=== PATIENT | male | born 1950 | race African-American/Black ===

== ENCOUNTER 2022-12-22 04:00 | Inpatient (IN) | payer MEDICARE ==
[2022-12-22 04:21] LABS: #Eosinphils 0.5 thou/uL (0.0-0.7); #Monocytes 0.5 thou/uL (0.11-0.59); #Neutrophils 2.3 thou/uL (1.40-6.50); %Basophils 0.8 % (0.0-1.0); %Eosinophils 10.5 % (0.0-10.0); %Lymphocytes 31.1 % (21.0-51.0); %Monocytes 9.9 % (0.0-10.0); %Neutrophils 47.5 % (42.0-75.0); Hemoglobin 14.6 g/dL (14.0-18.0); Mean Corpuscular HGB CONC 32.8 g/dL (32.0-36.0); Mean Corpuscular Hemoglobin 30.8 pg (27.0-31.0); Mean Corpuscular Volume 93.9 fl (78.0-98.0); Mean Platelet Volume 10.9 fL (7.4-10.4); Platelet Count 218 10x3/uL (130-400); RBC Distribution Width 14.1 % (11.5-14.5); Red Blood Cell (RBC) Count 4.74 mill/uL (4.70-6.10); White Blood Cell (WBC) Count 4.8 10x3/uL (4.8-10.8)
[2022-12-22 04:43] LABS: ALT (SGPT) 22 U/L (8-55); AST (SGOT) 21 U/L (5-34); Albumin 4.2 g/dL (3.4-4.8); Alkaline Phosphatase 70 U/L (40-110); Anion Gap 13 mmol/L (10-20); BUN (Urea Nitrogen) 12 mg/dL (8.4-25.7); Bilirubin, Total 0.3 mg/dL (0.2-1.2); Calc. Creatinine Clearance 0 mL/min (70-130); Calcium 8.9 mg/dL (7.8-10.44); Carbon Dioxide 24 mmol/L (23-31); Chloride 106 mmol/L (98-107); Estimated GFR 75; Globulin 2.8 g/dL (2.4-3.5); Glucose 108 mg/dL (83-110); Potassium 4.3 mmol/L (3.5-5.1); Sodium 139 mmol/L (136-145)
[2022-12-22 05:38] LABS: SARS-CoV-2 NAA Rapid Test Not Detected (NotDetected)
[2022-12-22] MEDS ORDERED: predniSONE 20 MG TAB ONE (06:11)
[2022-12-22] MEDS ORDERED: Ipratropium/Albuterol 3 ML NEB ONE ×2 (06:11→07:53)
[2022-12-22 06:14] LABS: Actual Bicarbonate (HCO3v) 27.1 mEq/L (22-28); Base Excess 1.2 mEq/L (-2.0 to +3.0); Calcium, Ionized (venous) 1.09 mmol/L (1.16-1.32); Chloride (VBG) 105 mmol/L (98-106); Hematocrit-VBG 44 % (42.0-52.0); Hemoglobin (Hb) 14.9 g/dL (12.6-17.4); Potassium (VBG) 4.19 mmol/L (3.70-5.30); Sodium 138.2 mmol/L (133-146); pH (venous) 7.372 (7.32-7.43)
[2022-12-22] MEDS ORDERED: Aspirin 81 mg Enteric Coated Tablet ONE (06:32)
[2022-12-22] MEDS ORDERED: Ondansetron ODT 4 MG TAB PO PRN (08:08)
[2022-12-22] MEDS ORDERED: Ondansetron PF 4 MG/2 ML Vial IVP PRN (08:08)
[2022-12-22] MEDS ORDERED: Acetaminophen 325 MG TAB PO PRN (08:08)
[2022-12-22] MEDS ORDERED: Famotidine 20 MG TAB ONE (10:34)
[2022-12-22] MEDS ORDERED: Iopamidol-370 76% 500 ML MDV (1 ML CHARGE) ONE (10:57)
[2022-12-22] MEDS: Famotidine 20 MG TAB PO SCH ×2 (11:02→20:38)
[2022-12-22 11:15] LABS: Troponin I Less than 0.010 ng/mL (< 0.028)
[2022-12-22 12:03] VITALS: BMI 37.1
[2022-12-22] MEDS: Ipratropium/Albuterol 3 ML NEB IPPB SCH ×4 (12:17→22:34)
[2022-12-22] MEDS: methylPREDNISolone Sod Succ 40 MG VIAL IVP SCH ×3 (13:22→23:43)
[2022-12-22] MEDS: Nicotine 14 MG PATCH TD SCH (13:22)
[2022-12-22] MEDS: Bupropion 150 MG SR TAB PO SCH (13:22)
[2022-12-22] MEDS: Zolpidem Tartrate 5 MG TAB PO PRN (23:43)
[2022-12-23] MEDS: Ipratropium/Albuterol 3 ML NEB IPPB SCH ×6 (02:04→22:45)
[2022-12-23 04:30] LABS: #Monocytes 0.4 thou/uL (0.11-0.59); #Neutrophils 10.1 thou/uL (1.40-6.50); %Basophils 0.2 % (0.0-1.0); %Eosinophils 0.1 % (0.0-10.0); %Lymphocytes 8.4 % (21.0-51.0); %Monocytes 3.1 % (0.0-10.0); %Neutrophils 87.6 % (42.0-75.0); Hemoglobin 13.3 g/dL (14.0-18.0); Mean Corpuscular HGB CONC 32.2 g/dL (32.0-36.0); Mean Corpuscular Hemoglobin 30.2 pg (27.0-31.0); Mean Corpuscular Volume 93.9 fl (78.0-98.0); Mean Platelet Volume 10.9 fL (7.4-10.4); Platelet Count 211 10x3/uL (130-400); RBC Distribution Width 14.1 % (11.5-14.5); White Blood Cell (WBC) Count 11.5 10x3/uL (4.8-10.8)
[2022-12-23 04:43] LABS: Hemoglobin A1c 5.7 % (4.0-6.0)
[2022-12-23 04:54] LABS: Anion Gap 17 mmol/L (10-20); BUN (Urea Nitrogen) 16 mg/dL (8.4-25.7); Calc. Creatinine Clearance 116 mL/min (70-130); Calcium 8.6 mg/dL (7.8-10.44); Carbon Dioxide 19 mmol/L (23-31); Cardiac Risk 2.7 (Less than 4.5); Chloride 106 mmol/L (98-107); Cholesterol 129 mg/dl (< 200 Desired); Estimated GFR 83; Glucose 200 mg/dL (83-110); HDL Cholesterol 47 mg/dL (>60 Neg Risk); LDL Cholesterol, Calculated 72 mg/dL; Potassium 3.9 mmol/L (3.5-5.1); Sodium 138 mmol/L (136-145); Triglycerides 49 mg/dL (Less than 150)
[2022-12-23] MEDS: methylPREDNISolone Sod Succ 40 MG VIAL IVP SCH ×4 (05:26→23:21)
[2022-12-23] MEDS: Famotidine 20 MG TAB PO SCH (10:01)
[2022-12-23] MEDS: Bupropion 150 MG SR TAB PO SCH (10:01)
[2022-12-23] MEDS: Benzonatate 100 MG CAP PO PRN ×2 (10:01→18:05)
[2022-12-23] MEDS: Nicotine 14 MG PATCH TD SCH (10:01)
[2022-12-23] MEDS ORDERED: Benzocaine/Menthol 1 LOZ LOZ PO PRN (15:06)
[2022-12-23] MEDS ORDERED: Phenol 118 ML BOT PO PRN (15:30)
[2022-12-23] MEDS ORDERED: Milk Of Magnesia 30 ML UDCUP PO SCH (18:30)
[2022-12-23] MEDS: guaiFENesin/DM ER PO SCH (20:17)
[2022-12-23] MEDS: HYDROcodone/Acetaminophen 5/325 mg Tablet PO SCH ×2 (20:18→23:20)
[2022-12-23] MEDS: Benzonatate 100 MG CAP PO SCH (20:18)
[2022-12-23] MEDS ORDERED: Pantoprazole 40 MG VIAL IVP SCH (21:00)
[2022-12-23] MEDS: Zolpidem Tartrate 5 MG TAB PO PRN (23:22)
[2022-12-24] MEDS: Benzonatate 100 MG CAP PO SCH ×4 (01:04→21:40)
[2022-12-24] MEDS: Ipratropium/Albuterol 3 ML NEB IPPB SCH ×6 (02:41→22:19)
[2022-12-24 04:19] LABS: %Lymphocytes 6.5 % (21.0-51.0); %Neutrophils 88.8 % (42.0-75.0); Hemoglobin 13.3 g/dL (14.0-18.0); Mean Corpuscular HGB CONC 33.1 g/dL (32.0-36.0); Mean Corpuscular Hemoglobin 30.6 pg (27.0-31.0); Mean Corpuscular Volume 92.6 fl (78.0-98.0); Mean Platelet Volume 10.7 fL (7.4-10.4); Platelet Count 214 10x3/uL (130-400); RBC Distribution Width 14.6 % (11.5-14.5); Red Blood Cell (RBC) Count 4.34 mill/uL (4.70-6.10); White Blood Cell (WBC) Count 17.4 10x3/uL (4.8-10.8)
[2022-12-24 04:20] LABS: #Monocytes 0.7 thou/uL (0.11-0.59); #Neutrophils 15.5 thou/uL (1.40-6.50); %Basophils 0.1 % (0.0-1.0)
[2022-12-24 04:46] LABS: Anion Gap 13 mmol/L (10-20); BUN (Urea Nitrogen) 16 mg/dL (8.4-25.7); Calc. Creatinine Clearance 125 mL/min (70-130); Calcium 8.2 mg/dL (7.8-10.44); Carbon Dioxide 24 mmol/L (23-31); Chloride 106 mmol/L (98-107); Estimated GFR 91; Glucose 161 mg/dL (83-110); Potassium 4.5 mmol/L (3.5-5.1); Sodium 138 mmol/L (136-145)
[2022-12-24] MEDS: HYDROcodone/Acetaminophen 5/325 mg Tablet PO SCH ×5 (05:13→21:40)
[2022-12-24] MEDS: methylPREDNISolone Sod Succ 40 MG VIAL IVP SCH (05:14)
[2022-12-24] MEDS: Nicotine 14 MG PATCH TD SCH (09:06)
[2022-12-24] MEDS: guaiFENesin/DM ER PO SCH ×2 (09:07→21:40)
[2022-12-24] MEDS: Bupropion 150 MG SR TAB PO SCH (09:08)
[2022-12-24] MEDS: methylPREDNISolone Sod Succ/PF 125 MG/2 ML VIAL IVP SCH ×2 (12:24→17:27)
[2022-12-24] MEDS: Zolpidem Tartrate 5 MG TAB PO PRN (22:39)
[2022-12-25] MEDS: methylPREDNISolone Sod Succ/PF 125 MG/2 ML VIAL IVP SCH ×3 (00:50→12:09)
[2022-12-25] MEDS: HYDROcodone/Acetaminophen 5/325 mg Tablet PO SCH ×4 (00:51→12:09)
[2022-12-25] MEDS: Benzonatate 100 MG CAP PO SCH ×2 (02:11→09:04)
[2022-12-25] MEDS: Ipratropium/Albuterol 3 ML NEB IPPB SCH ×4 (03:11→11:04)
[2022-12-25] MEDS: Bupropion 150 MG SR TAB PO SCH (09:04)
[2022-12-25] MEDS: guaiFENesin/DM ER PO SCH (09:04)
[2022-12-25] MEDS: Nicotine 14 MG PATCH TD SCH (09:04)
[2022-12-25 11:20] VITALS: BP 133/68; TEMP 98.9
== END 2022-12-25 14:20 | disposition home or self-care (01) | DRG 192 ==
LOC: ERS 04:00 → ERHOLD 06:37 → 2NO 11:40
PROVIDERS: ADMIT Specialist; ATTEND Specialist
DX: J44.1 Chronic obstructive pulmonary disease with (acute) exacerbation (principal); E78.00 Pure hypercholesterolemia, unspecified; F17.210 Nicotine dependence, cigarettes, uncomplicated; E11.9 Type 2 diabetes mellitus without complications; E66.01 Morbid (severe) obesity due to excess calories; G47.33 Obstructive sleep apnea (adult) (pediatric); Z88.5 Allergy status to narcotic agent; Z91.199 Patient's noncompliance with other medical treatment and regimen due to unspecified reason; Z68.37 Body mass index [BMI] 37.0-37.9, adult; Z79.84 Long term (current) use of oral hypoglycemic drugs; Z79.899 Other long term (current) drug therapy
CPT/HCPCS: 36415; 71046; 71275; 80048; 80053; 80061; 82805; 83036; 83880; 84443; 84484; 85025; 85379; 93005; 94640; C9113; J1650; J2920; J2930; J7512; J7620; Q9967

== ENCOUNTER 2024-03-20 01:37 | Emergency (ER) | payer MEDICARE ==
[2024-03-20 03:03] LABS: #Basophils 0.05 10x3/uL (0.0-0.2); %Eosinophils 11.5 % (0.0-10.0); %Lymphocytes 31.9 % (21.0-51.0); %Monocytes 9.9 % (0.0-10.0); %Neutrophils 45.5 % (42.0-75.0); Hematocrit 43.9 % (42.0-52.0); Hemoglobin 14.7 g/dL (14.0-18.0); Mean Corpuscular HGB CONC 33.5 g/dL (32.0-36.0); Mean Corpuscular Volume 92.6 fL (78.0-98.0); Mean Platelet Volume 10.8 fL (7.4-10.4); Platelet Count 203 10x3/uL (130-400); RBC Distribution Width 14.9 % (11.5-14.5); Red Blood Cell (RBC) Count 4.74 mill/uL (4.70-6.10)
[2024-03-20 03:21] LABS: ALT (SGPT) 28 U/L (8-55); AST (SGOT) 23 U/L (5-34); Actual Bicarbonate (HCO3v) 18.5 mEq/L (22-28); Albumin 3.6 g/dL (3.4-4.8); Alkaline Phosphatase 57 U/L (40-110); Anion Gap 13 mmol/L (10-20); BUN (Urea Nitrogen) 15 mg/dL (8.4-25.7); Base Excess -4.7 mEq/L (-2.0 to +3.0); Bilirubin, Total 0.5 mg/dL (0.2-1.2); Calc. Creatinine Clearance 0 mL/min (70-130); Calcium 8.4 mg/dL (7.8-10.44); Calcium, Ionized (venous) 1.09 mmol/L (1.16-1.32); Carbon Dioxide 20 mmol/L (23-31); Chloride 110 mmol/L (98-107); Chloride (VBG) 106 mmol/L (98-106); Estimated GFR 73; Globulin 2.5 g/dL (2.4-3.5); Glucose 109 mg/dL (83-110); Hematocrit-VBG 46 % (42.0-52.0); Hemoglobin (Hb) 15.6 g/dL (12.6-17.4); Potassium 3.7 mmol/L (3.5-5.1); Potassium (VBG) 3.78 mmol/L (3.70-5.30); Protein, Total 6.1 g/dL (5.8-8.1); Sodium 138 mmol/L (133-146); Sodium 139 mmol/L (136-145)
[2024-03-20] MEDS ORDERED: methylPREDNISolone Sod Succ/PF 125 MG/2 ML VIAL ONE (03:21)
[2024-03-20] MEDS ORDERED: Magnesium 2 GM/50 ML BAG (IN WATER) ONE (03:21)
[2024-03-20 03:25] LABS: Troponin I Less than 0.010 ng/mL (< 0.028)
[2024-03-20] MEDS ORDERED: Ipratropium/Albuterol 3 ML NEB ONE (03:39)
[2024-03-20] MEDS ORDERED: Albuterol 2.5 MG (0.5 mL) NEB ONE (03:40)
[2024-03-20] MEDS ORDERED: Albuterol 2.5 MG (3 mL) NEB ONE (03:42)
== END 2024-03-20 04:50 | disposition home or self-care (01) ==
LOC: ERS 01:37
DX: J44.1 Chronic obstructive pulmonary disease with (acute) exacerbation (principal); Z87.891 Personal history of nicotine dependence
CPT/HCPCS: 71045; 80053; 82805; 83880; 84484; 85025; 85379; 93005; 96365; 96375; 99285; J2919; J3475; 36415; J7611; J7620

== ENCOUNTER 2024-06-09 12:30 | Emergency (ER) | payer MEDICARE ==
[2024-06-09] MEDS ORDERED: Budesonide 0.5 MG/2 ML NEB ONE (13:50)
[2024-06-09] MEDS ORDERED: Ipratropium/Albuterol 3 ML NEB ONE (13:50)
[2024-06-09] MEDS ORDERED: methylPREDNISolone Sod Succ/PF 125 MG/2 ML VIAL ONE (13:55)
[2024-06-09] MEDS ORDERED: Magnesium 2 GM/50 ML BAG (IN WATER) ONE (13:55)
[2024-06-09 14:08] LABS: Calcium 8.8 mg/dL (7.8-10.44); Chloride 111 mmol/L (98-107); Potassium 4.3 mmol/L (3.5-5.1); Sodium 139 mmol/L (136-145)
[2024-06-09 14:22] LABS: ALT (SGPT) 24 U/L (8-55); AST (SGOT) 22 U/L (5-34); Albumin 3.9 g/dL (3.4-4.8); Alkaline Phosphatase 56 U/L (40-110); Anion Gap 13 mmol/L (10-20); BUN (Urea Nitrogen) 11 mg/dL (8.4-25.7); Bilirubin, Total 0.6 mg/dL (0.2-1.2); Calc. Creatinine Clearance 0 mL/min (70-130); Carbon Dioxide 19 mmol/L (23-31); Estimated GFR 97; Globulin 2.5 g/dL (2.4-3.5); Glucose 123 mg/dL (83-110); Protein, Total 6.4 g/dL (5.8-8.1)
[2024-06-09 15:13] LABS: Troponin I Less than 0.010 ng/mL (< 0.028)
[2024-06-09 16:14] LABS: #Basophils 0.05 10x3/uL (0.0-0.2); %Basophils 0.9 % (0.0-1.0); %Eosinophils 5.5 % (0.0-10.0); %Lymphocytes 26.8 % (21.0-51.0); %Monocytes 5.5 % (0.0-10.0); %Neutrophils 61.1 % (42.0-75.0); Hematocrit 46.8 % (42.0-52.0); Hemoglobin 15.7 g/dL (14.0-18.0); Mean Corpuscular HGB CONC 33.5 g/dL (32.0-36.0); Mean Corpuscular Hemoglobin 30.8 pg (27.0-31.0); Mean Corpuscular Volume 91.8 fL (78.0-98.0); Mean Platelet Volume 10.5 fL (7.4-10.4); Platelet Count 210 10x3/uL (130-400); RBC Distribution Width 14.8 % (11.5-14.5)
== END 2024-06-09 16:40 | disposition home or self-care (01) ==
LOC: ERS 12:30
DX: J44.1 Chronic obstructive pulmonary disease with (acute) exacerbation (principal); Z55.6 Problems related to health literacy; Z87.891 Personal history of nicotine dependence
CPT/HCPCS: 71045; 80053; 83735; 83880; 84484; 85025; 93005; 94760; 96374; 99285; J2919; J3475; 36415; J7620; J7626

== ENCOUNTER 2024-07-05 11:37 | Outpatient (CLI) | payer MEDICARE | END 2024-07-05 11:38 | disposition home or self-care (01) | LOC: BICRAD 11:37 | DX: J44.1 Chronic obstructive pulmonary disease with (acute) exacerbation (principal); J98.4 Other disorders of lung; R91.8 Other nonspecific abnormal finding of lung field | CPT/HCPCS: 71046 ==